=== PATIENT | male | born 1975 | race Hispanic/Latino ===

== ENCOUNTER 2017-06-26 15:06 | Emergency (ER) | payer SELFPAY ==
[2017-06-26] MEDS ORDERED: Lidocaine 1% w/Epinephrine 1:200K 30 ML VIAL ONE (15:30)
[2017-06-26] MEDS ORDERED: Adacel (T-DAP) 0.5 ML VIAL ONE (15:30)
[2017-06-26] MEDS ORDERED: Ketorolac Tromethamine 30 MG/ML VIAL ONE (16:00)
--- NOTE | 2017-06-26 16:11 | RAD ---
EXAM: RIGHT INDEX FINGER 3 VIEWS: HISTORY: Crush injury. COMPARISON: None. FINDINGS: There is avulsion of the nailbed. There is a nondisplaced fracture involving the distal dorsal aspec t of the distal phalanx. IMPRESSION: 1. Distal phalanx fracture. 2. Nailbed injury. POS: [facility]
[2017-06-26] MEDS ORDERED: Bacitracin Zinc 1 Packet ONE (16:49)
== END 2017-06-26 17:06 | disposition home or self-care (01) ==
LOC: ERS 15:06
DX: S62.660A Nondisplaced fracture of distal phalanx of right index finger, initial encounter for closed fracture (principal); S61.311A Laceration without foreign body of left index finger with damage to nail, initial encounter; W22.8XXA Striking against or struck by other objects, initial encounter
CPT/HCPCS: 11760; 90471; 90715; 96372; J1885